=== PATIENT | female | born 1970 | race African-American/Black ===

== ENCOUNTER 2016-06-20 18:51 | Emergency (ER) | payer OTHER ==
--- NOTE | ~2016-06-20 | CR72 ---
[facility] A Service of [facility] RADIOLOGY TEXT RESULTS PATIENT: ANGELICA MAY LOCATION: [facility] : 68 UNIT #: [id number] AGE: [address]: Severiano Gomez MD SEX: F ORDER DR: [id number] [place] [address] [facility]. [place], [place] [address] [id number] MR#: [id number] Acc #: [id number] NAME: ANGELICA MAY. : 1970 SEX: F STUDY DATE/TIME: 06/20/2016 18:52 UNIT: [facility] ROOM: STUDY DESCRIPTION: CR Chest Single View Portable Attending Physician: Severiano Gomez M.D. Ordering Physician: Severiano Gomez M.D. Primary Care Physician: Primary Care Physician No MEDICAL IMAGING REPORT This report is preliminary unless electronic signature is present EXAM Single view chest, 06/20/2016 INDICATIONS Chest pain. FINDINGS Single portable AP view of the chest compared to 11/02/2006. Heart and mediastinal contour is normal. Lungs are clear. No pleural effusion. IMPRESSION Negative chest radiograph. Dictated by... Ismael Mujica M.D. THIS IS AN ELECTRONICALLY VERIFIED REPORT Ismael Mujica M.D. at 06/21/2016 3:04 PM BEBE/gio TD: 06/20/2016 23:59 JOB #: [id number] MEDICAL IMAGING REPORT Page 1 of 1 COPY
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
[2016-06-20 18:25] LABS: BASOPHIL% 0.7 % (0-2.5); EOSINOPHIL# 0.1 X10e3 (0-0.7); HEMATOCRIT 39.9 % (35.0-45.0); HEMOGLOBIN 12.8 gm/dL (12.0-16.0); LYMPHOCYTE# 2.6 X10e3 (1.0-3.5); MEAN CELL VOLUME 72.3 FL (83-96); MEAN CORPUSCULAR HEMOGLOBIN 23.2 PG (28-34); MEAN CORPUSCULAR HGB CONC 32.1 g/dL (30-36); MEAN PLATELET VOLUME 8.5 FL (6.5-11.5); MONOCYTE# 0.6 X10e3 (0-1.0); MONOCYTE% 7.9 % (3.0-12.0); NEUTROPHIL# 3.8 X10e3 (1.5-7.1); NEUTROPHIL% 53.4 % (40-75); RED BLOOD COUNT 5.51 X10e (3.90-5.30); RED CELL DISTRIBUTION WIDTH 15.3 % (11.0-15.5); WHITE BLOOD COUNT 7.1 X10e3 (4.0-10.5)
[2016-06-20 18:26] LABS: DIFF IND NO
[2016-06-20 18:27] LABS: PLATELET COUNT 245 X10e3 (140-420)
[2016-06-20 18:33] LABS: ALBUMIN SERUM 4.1 g/dL (3.5-5.0); BILIRUBIN, DIRECT 0.1 mg/dL (0.0-0.2); BILIRUBIN,INDIRECT 0.9 mg/dL (0.0-0.9); BUN/CREATININE RATIO 18.33; CALCIUM SERUM 9.1 mg/dL (8.4-10.2); CREATININE SERUM 0.6 mg/dL (0.6-1.4); GLOM FILT RATE Estimated 125.8 mL/min (>60); POTASSIUM 3.1 mmol/L (3.5-5.1); PROTEIN TOTAL SERUM 7.5 g/dL (6.0-8.3)
[~2016-06-20 18:51] MED LIST: ALPRAZOLAM PO; ATIVAN; CIPRO PO; DICLOFENAC PO; DUOFER 28 MG TA28 MG PO; EC-NAPROSYN500 MG PO; FELDENE20 MG PO; FLEXERIL PO; KETOPROFEN PO; LORTAB 10/500 T1 TAB PO; LYRICA PO; NO MEDICATIONS; OMEPRAZOLE20 M1 PO; ROBAXIN PO
[2016-06-20 19:19] LABS: URINE SOURCE CLEAN CATCH
[2016-06-20 19:23] LABS: URINE APPEARANCE CLOUDY; URINE BILIRUBIN NEG (NEG); URINE BLOOD NEG (NEG); URINE COLOR DK YELLOW; URINE GLUCOSE NEG (NEG); URINE KETONE 2+ (NEG); URINE LEUKOCYTE ESTERASE NEG (NEG); URINE NITRATE NEG (NEG); URINE PROTEIN 1+ (NEG); URINE SPECIFIC GRAVITY 1.032 (1.003-1.035)
[2016-06-20 19:26] LABS: CULTURE INDICATED? YES; URBCS1 AUWI 0-2 /[HPF] (0-2); URINE BACTERIA AUWI 1+ (NEGATIVE); URINE SQUAMOUS EPITHELIAL CELL FEW /[HPF]
[2016-06-20 19:44] LABS: AMPHETAMINE POS (NEG); BARBITURATES NEG (NEG); BENZODIAZEPINES POS (NEG); COCAINE NEG (NEG); MARIJUANA NEG (NEG); OPIATES NEG (NEG); TRICYCLIC ANTIDEPRESSANTS NEG (NEG); U METHADONE NEG (NEG)
== END 2016-06-20 20:05 | disposition home or self-care (01) ==
LOC: CED 18:51
PROVIDERS: Emergency Medicine
DX: R41.0 Disorientation, unspecified (principal); R68.89 Other general symptoms and signs; J44.9 Chronic obstructive pulmonary disease, unspecified; Z90.710 Acquired absence of both cervix and uterus; Z98.890 Other specified postprocedural states; F17.200 Nicotine dependence, unspecified, uncomplicated
CPT/HCPCS: 36415; 71010; 80048; 80076; 80307; 81003; 84484; 85025; 87086; 93005; 99283; 99284

== ENCOUNTER 2016-07-16 11:37 | Inpatient (IN) | payer OTHER ==
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
--- NOTE | ~2016-07-16 | PN ---
Unit #: [id number] #: [id number] Patient: ANGELICA MAY [id number] [facility] [address] [place] [address] [id number] I MR#: [id number] NAME: ANGELICA MAY ROOM: P130 Age: 46 Sex: F Admission Date: 07/16/2016 : 1970 Attending Physician: Francis Martinez M.D. Admitting Physician: Francis Martinez M.D. Primary Care Physician: Primary Care Physician Estelle MCKEON PROGRESS NOTES DATE 07/18/2016 DISCUSSION The patient is dysphoric and tearful today but is much less angry and exhibits no evidence of psychosis when then physician meets with patient and her adoption social worker. The patient is currently denying suicidal or homicidal ideation or psychotic symptoms. She reports that she is followed by Dr. Galarza and is prescribed a host of psychotropic and pain medications under Dr. Galarza's care. Should she sustain progress, discharge will likely take place tomorrow. Dictated by... Francis Martinez M.D. CB/zakia TD: 07/18/2016 15:18 JOB #: [id number] MIKE PROGRESS NOTES Page 1 of 1 X Francis Martinez MD PROGRESS NOTE
--- NOTE | ~2016-07-16 | DS ---
Unit #: [id number] #: [id number] Patient: ANGELICA MAY N [id number] [place] [address] [id number] I MR#: [id number] NAME: ANGELICA MAY ROOM: 30 Age: 46 Sex: F Admission Date: 07/16/2016 : 1970 Discharge Date: 07/19/2016 Attending Physician: Francis Martinez M.D. Primary Care Physician: Primary Care Physician No DISCHARGE SUMMARY REASON FOR ADMISSION The patient is a 46-year-old female, admitted with acute mental status changes, possibly substance-induced. HOSPITAL COURSE The patient was admitted to the [address] [place] [address] unit and placed on suicide precautions. Zyprexa Zydis 10 mg q.8 hours p.r.n. agitation due to psychosis was ordered. The patient was initially noted to be angry and verbally abusive. However, these symptoms had subsided by her second day of hospitalization, we continued to observe the patient in the hospital given her acute mental status changes. Urine drug screen was never became part of the record during the patient's stay in the hospital. It was learned the patient was seeing Dr. Galarza on an outpatient basis and was prescribed multiple medications including opioids, psychostimulants, and a benzodiazepine but she exhibited no signs or symptoms of withdrawal during her brief stay in the hospital. By 07/19/2016, the patient was in brighter spirits. She denied suicidal or homicidal ideation. She stated that she would not return to the home, she had previously shared with her son, whom she blamed for her hospitalization, instead stating that she would stay with a family member. Discharge was ordered. FINAL DIAGNOSES Alcohol use disorder; cocaine use disorder; psychotic disorder, unspecified. DISPOSITION ON DISCHARGE The patient is discharged on no psychotropic or other medications. FOLLOWUP Followup will take place through the auspices of community mental health and chemical dependency treatment resources. PROGNOSIS The patient's prognosis considered fair. Dictated by... Francis Martinez M.D. CB/teo TD: 07/19/2016 16:34 JOB #: [id number] Unit #: [id number] #: [id number] Patient: ANGELICA MAY N DISCHARGE SUMMARY Page 1 of 1 X Francis Martinez MD X DISCHARGE SUMMARY
--- NOTE | ~2016-07-16 | HP ---
Unit #: [id number] #: [id number] Patient: TONA MAY N [id number] [place] [address] [id number] I MR#: [id number] NAME: TONA MAY. ROOM: P130 Age: 46 Sex: F Admission Date: 07/16/2016 : 1970 Attending Physician: Francis Martinez M.D. Admitting Physician: Francis Martinez M.D. Primary Care Physician: Primary Care Physician No HISTORY AND PHYSICAL HISTORY OF PRESENT ILLNESS Tona is a 46-year-old female admitted on 07/16/[address] [place] [address] for hallucinations. PAST MEDICAL HISTORY 1. COPD 2. Obesity PAST SURGICAL HISTORY 1. section 2. Bilateral lumpectomy of both breasts SOCIAL HISTORY She is currently single and living alone. Denies tobacco or illegal drug use. Does report that she has binge alcohol use. FAMILY HISTORY Noncontributory. REVIEW OF SYSTEMS CONSTITUTIONAL: No fever or chills. HEENT: Denies any sore throat, ear pain or runny nose. CARDIOVASCULAR: Denies chest pain, irregular heart rhythm or palpitations. CHEST: Denies shortness of breath or cough. No hemoptysis. GASTROINTESTINAL: Denies nausea, vomiting, diarrhea or chronic constipation. ENDOCRINE: Denies history of increased thirst or urination. No recent significant weight loss or gain. GENITOURINARY: Denies dysuria, frequency, or hematuria. SKIN: Denies any rashes. HEMATOLOGIC: Denies history of increased bleeding or bruising. MUSCULOSKELETAL: Denies any hot, swollen joints. No generalized muscle pain. NEUROLOGIC: Denies problems with vision or speech. No frequent, severe headaches. No numbness, tingling or weakness in any extremities. Denies loss of bladder or bowel control. CURRENT MEDICATIONS None. ALLERGIES Unit #: [id number] #: [id number] Patient: TONA MAY Ibuprofen. PHYSICAL EXAMINATION GENERAL: Alert, oriented, in no acute distress. VITAL SIGNS: Blood pressure 148/88, heart rate 94, respirations 16, temperature 98.2. SKIN: Warm and dry without rash or lesion. HEENT: Normocephalic. TMs not viewed. Oral and nasal passages clear. Conjunctivae clear. PERRLA. EOMs intact. NECK: Supple without lymphadenopathy or thyromegaly. HEART: Regular rate and rhythm without murmur. LUNGS: Clear. ABDOMEN: Soft, nontender, without masses or hepatosplenomegaly. : Not done. EXTREMITIES: No evidence of cyanosis, clubbing or edema. Moves all without focal deficit. NEUROLOGICAL: Grossly within normal limits. Cranial Nerves: II: Visual moody are intact. III, IV AND : Extraocular movements are intact. Pupils are equal, round and reactive to light. V: Facial sensation is grossly normal. VII: Facial movements and expression are normal. VIII: Auditory acuity grossly intact. IX, X: Uvula is midline. Phonation is normal. XI: Patient shrugs shoulders and turns head normally. XII: Tongue protrudes in the midline. Sensory and Motor Function: Sensory and motor sensation is grossly normal. Motor: moves all extremities well. Coordination: Gait is normal. Deep Tendon Reflexes: Intact. IMPRESSION 1. Psychiatric admission 2. COPD 3. Obesity RECOMMENDATIONS Psychiatric, per psychiatrist. MEDICAL: I see no contraindications to participating in facility's activities. MEDICAL PROGNOSIS Good. MEDICAL CONDITION Stable. Dictated by... Edelmira Zarate/chely TD: 07/16/2016 23:37 JOB #: [id number] Unit #: [id number] #: [id number] Patient: TONA MAY HISTORY AND PHYSICAL Page 1 of 1 X EDGARDO PALMA APRN HISTORY AND PHYSICAL
--- NOTE | ~2016-07-16 | PN ---
Unit #: [id number] #: [id number] Patient: ANGELICA MAY [id number] [facility] [address] [place] [address] [id number] I MR#: [id number] NAME: ANGELICA MAY ROOM: 30 Age: 46 Sex: F Admission Date: 07/16/2016 : 1970 Attending Physician: Francis Martinez M.D. Admitting Physician: Francis Martinez M.D. Primary Care Physician: Primary Care Physician Estelle MCKEON PROGRESS NOTES DATE 07/17/2016 DISCUSSION The patient is abed resting comfortably today and cannot be aroused for interview. Staff reports no management issues but states that the patient has remained seclusive to room. Dictated by... Francis Martinez M.D. CB/chely TD: 07/18/2016 01:11 JOB #: [id number] MIKE PROGRESS NOTES Page 1 of 1 X Francis Martinez MD PROGRESS NOTE
== END 2016-07-19 14:00 | disposition home or self-care (01) | DRG 897 ==
LOC: P1S 11:37
DX: F10.10 Alcohol abuse, uncomplicated (principal); F14.10 Cocaine abuse, uncomplicated; F23 Brief psychotic disorder; J44.9 Chronic obstructive pulmonary disease, unspecified; E66.9 Obesity, unspecified